=== PATIENT | male | born 1960 | race Two or more races ===

== ENCOUNTER 2022-05-24 20:24 | Emergency (ER) | payer OTHER ==
[~2022-05-24] VITALS: Ht 167.6 cm; Wt 64.0 kg
[2022-05-24 21:42] LABS: Hematocrit 52.6 % (41.0-53.0); Hemoglobin 17.5 g/dL (13.5-17.5); Mean Corpuscular Hemoglobin 30.6 pg (28.0-32.0); Mean Corpuscular Hgb Conc. 33.2 g/dL (32.0-36.0); Mean Corpuscular Volume 92.2 fL (80.0-100.0); Red Blood Cells 5.71 10^6/uL (4.5-5.90); Red Cell Distribution Width 14.2 % (11.8-14.3); White Blood Cell 6.6 10^3/uL (4.4-10.8)
[2022-05-24 22:08] LABS: Albumin 3.7 g/dL (3.4-5.0); BUN/Creatinine Ratio 10.3
[2022-05-24 22:10] LABS: Bilirubin, Total 0.4 mg/dL (0.2-1.0); Total Protein 7.4 g/dL (6.4-8.2)
[2022-05-24 22:16] LABS: Band Neutrophils % (manual) 0; Basophils % (manual) 0 (0.0-2.0); Blast Cells 0; Metamyelocytes % 0; Myelocytes % 0; Promyelocytes % 0; Reactive Lymphocytes 0
[2022-05-24 22:40] LABS: Eosinophils % (manual) 1 (0-7); Lymphocytes % (manual) 18 (10.0-50.0); Monocytes % (manual) 7 (0-12)
[2022-05-25] MEDS ORDERED: SODIUM CHLORIDE 0.9% 1,000 ML IV ONE ×2 (00:30→02:45)
[2022-05-25] MEDS ORDERED: MECLIZINE HCL 25 MG TAB PO ONE (02:45)
[2022-05-25 08:14] VITALS: BP 132/74
== END 2022-05-25 08:24 | disposition home or self-care (01) ==
LOC: ER 20:24 → EDBD 20:24 → ER 05-25 08:24
DX: R51.9 Headache, unspecified (principal); F10.10 Alcohol abuse, uncomplicated
CPT/HCPCS: 36415; 70450; 71045; 80053; 80320; 85007; 85027; 96360; 96361; 99285; J7030; J8597